=== PATIENT | female | born 1990 | race American Indian/Alaskan Native ===

== ENCOUNTER 2017-04-12 23:00 | Emergency (ER) | payer BC ==
[2017-04-12 23:43] LABS: Basophils % (Auto) 1.4 % (0.0-1.8); Eosinophils % (Auto) 1.1 % (0.0-4.3); Hematocrit 35.2 % (30.3-42.9); Hemoglobin 12.2 gm/dl (10.1-14.3); Mean Corpuscular HGB Conc 35 % (30-34); Mean Corpuscular Hemoglobin 32 pg (28-32); Mean Corpuscular Volume 91 fl (79-97); Platelet Count 184 K/mm3 (140-440); Red Blood Count 3.85 M/mm3 (3.65-5.03); White Blood Count 3.4 K/mm3 (4.5-11.0)
[2017-04-13 00:42] LABS: Bilirubin,Urine NEG (Negative); Blood,Urine SM (Negative); Ketones,Urine NEG (Negative); Leukocyte Esterase,Urine NEG (Negative); Mucus,Urine FEW /HPF; Nitrite,Urine NEG (Negative); Protein,Urine <15 mg/dL mg/dL (Negative); Urobilinogen,Urine < 2.0 mg/dL (<2.0)
--- NOTE | 2017-04-13 01:36 | Ultrasound Report ---
FINAL REPORT EXAM: US OB TRANSVAGINAL HISTORY: 8 WEEKS PREG / VAG BLEEDING/ LOWER ABD CRAMPS TECHNIQUE: Routine transvaginal imaging was obtained of the pelvis along with Doppler imaging of the gestational sac. FINDINGS: There is an intrauterine gestational sac containing an embryo and yolk sac. Estimated ultrasound age of the fetus is 6 weeks 2 days. There is no demonstrable cardiac activity compatible with demise. There is a subchorionic hemorrhage measuring 1.7 cm x 1.1 cm x 1.7 cm. The uterus measures 8.3 cm x 5.5 cm x 6.5 cm. Left midline there is a myometrial mass measuring 2.1 cm x 1.7 cm x 1.9 cm most likely representing a fibroid. The left ovary measures 2.8 cm x 0.8 cm x 1.8 cm. The right ovary measures 3.3 cm x 1.7 cm x 2.5 cm. Within the right ovary is a complex cyst measuring 2 cm in diameter most likely representing corpus luteum cyst. Free fluid is not seen. IMPRESSION: demise, 6 week 2 day IUP. Subchorionic hemorrhage measuring 1.7 cm x 1.1 cm x 1.7 cm. Probable fibroid in the body of the uterus measuring 2.1 cm x 1.7 cm x 1.9 cm.
--- NOTE | 2017-04-13 01:53 | Ultrasound Report ---
FINAL REPORT EXAM: US OB \T\lt; = 14 WEEKS FETUS HISTORY: 8 WEEKS PREG / VAG BLEEDING/ LOWER ABD CRAMPS TECHNIQUE: Transabdominal imaging was obtained of the pelvis along with Doppler imaging of the uterus. FINDINGS: The uterus measures 8.3 cm x 5.5 cm x 6.5 cm. Left midline in the myometrium is a fibroid measuring 2.1 cm x 1.7 cm x 1.9 cm. There is an intrauterine gestational sac containing an embryo and yolk sac corresponding to an ultrasound age of 6 weeks 2 days. There is no detectable cardiac activity compatible with demise. Adjacent to the gestational sac is a subchorionic hemorrhage measuring 1.7 cm x 1.1 cm x 1.7 cm. The maternal left ovary is normal size contour and echotexture measuring 2.8 cm x 0.8 cm x 1.8 cm. The maternal right ovary measures 3.3 cm x 1.7 cm x 2.5 cm. There is a complex cyst in the right ovary measures 2 cm in diameter most likely representing corpus luteum cyst. IMPRESSION: demise, 6 week 2 day IUP. Small fibroid in the body of the uterus measuring 2.1 cm x 1.7 cm x 1.9 cm.
[2017-04-13 02:31] VITALS: BP 101/69
--- NOTE | 2017-04-13 03:06 | Emergency Department Report ---
HPI - General Chief Complaint: Vaginal Bleeding Time Seen by Provider: 04/13/17 02:51 - HPI HPI: Room 8 The patient is a 26-year-old female presenting with a chief complaint of vaginal spotting. The patient states she is and is afternoon she developed light vaginal spotting as well as intermittent pelvic cramping. Patient denies any other complaints Location: Pelvis Duration: Intermittent since this afternoon Quality: Cramping Severity: Mild Modifying factors: [see above] Context: [see above] Mode of transportation: Unknown ED Past Medical Hx - Past Medical History Previous Medical History?: No - Surgical History Past Surgical History?: No - Family History Family history: no significant - Social History Smoking Status: Never Smoker Substance Use Type: None (denies illicit drug use) ED Review of Systems ROS: Stated complaint: VAGINAL BLEEDING Other details as noted in HPI Comment: All other systems reviewed and negative Constitutional: denies: chills, fever Eyes: denies: eye pain, eye discharge, vision change ENT: denies: ear pain, throat pain Respiratory: denies: cough, shortness of breath, wheezing Cardiovascular: denies: chest pain, palpitations Endocrine: no symptoms reported Gastrointestinal: abdominal pain. denies: nausea, diarrhea Genitourinary: abnormal menses. denies: urgency, dysuria, discharge Musculoskeletal: denies: back pain, joint swelling, arthralgia Skin: as per HPI Neurological: denies: headache, weakness, paresthesias Psychiatric: denies: anxiety, depression Hematological/Lymphatic: denies: easy bleeding, easy bruising Physical Exam - Physical Exam Vital Signs: Vital Signs 04/12/17 04/13/17 23:07 02:30 Temperature 98.2 F 98 F Pulse Rate 83 88 Respiratory 20 18 Rate Blood Pressure 106/75 Blood Pressure 101/69 [Left] O2 Sat by Pulse 100 100 Oximetry Physical Exam: GENERAL: The patient is well-developed well-nourished female lying on stretcher not appearing to be in acute distress. [] HEENT: Normocephalic. Atraumatic. Extraocular motions are intact. Patient has moist mucous membranes. NECK: Supple. Trachea midline CHEST/LUNGS: Clear to auscultation. There is no respiratory distress noted. HEART/CARDIOVASCULAR: Regular. There is no tachycardia. There is no gallop rub or murmur. ABDOMEN: Abdomen is soft, nontender. Patient has normal bowel sounds. There is no abdominal distention. SKIN: There is no rash. There is no edema. There is no diaphoresis. NEURO: The patient is awake, alert, and oriented. The patient is cooperative. The patient has normal speech MUSCULOSKELETAL: There is no evidence of acute injury. PELVIS: No blood in the vault ED Course Vital Signs 04/12/17 04/13/17 23:07 02:30 Temperature 98.2 F 98 F Pulse Rate 83 88 Respiratory 20 18 Rate Blood Pressure 106/75 Blood Pressure 101/69 [Left] O2 Sat by Pulse 100 100 Oximetry - Consultations Consultation #1: 04/13/17 03:52 Dr. Watt paged 04/13/17 03:[address] Watt- request that the patient call his office today to schedule an appointment to be seen either today or tomorrow and he will " take care of it from there." ED Medical Decision Making - Lab Data Result diagrams: 04/12/17 23:16 Laboratory Tests 04/12/17 04/12/17 04/12/17 23:16 23:16 23:16 WBC 3.4 L RBC 3.85 Hgb 12.2 Hct 35.2 MCV 91 MCH 32 MCHC 35 H RDW 13.0 L Plt Count 184 Lymph % (Auto) 54.0 H [place] % (Auto) 6.8 Eos % (Auto) 1.1 Baso % (Auto) 1.4 Lymph # 1.9 [place] # 0.2 Eos # 0.0 Baso # 0.0 Seg Neutrophils % 36.7 L Seg Neutrophils # 1.3 L HCG, Quant 31755 H Urine Color Urine Turbidity Urine pH Ur Specific [place] Urine Protein Urine Glucose (UA) Urine Ketones Urine Blood Urine Nitrite Urine Bilirubin Urine Urobilinogen Ur Leukocyte Esterase Urine WBC (Auto) Urine RBC (Auto) U Epithel Cells (Auto) Hyaline Casts Urine Mucus Blood Type O POSITIVE Antibody Screen Negative 04/13/17 00:03 WBC RBC Hgb Hct MCV MCH MCHC RDW Plt Count Lymph % (Auto) [place] % (Auto) Eos % (Auto) Baso % (Auto) Lymph # [place] # Eos # Baso # Seg Neutrophils % Seg Neutrophils # HCG, Quant Urine Color Straw Urine Turbidity Clear Urine pH 7.0 Ur Specific [place] 1.004 Urine Protein <15 mg/dl Urine Glucose (UA) Neg Urine Ketones Neg Urine Blood Sm Urine Nitrite Neg Urine Bilirubin Neg Urine Urobilinogen < 2.0 Ur Leukocyte Esterase Neg Urine WBC (Auto) 1.0 Urine RBC (Auto) 1.0 U Epithel Cells (Auto) 4.0 Hyaline Casts 1 Urine Mucus Few Blood Type Antibody Screen - Radiology Data Radiology results: report reviewed (pelvic ultrasound), image reviewed (pelvic ultrasound) Pelvic ultrasound (read by radiologist) 5 demise, 6 week 2 day IUP. Subchorionic hemorrhage measuring 1.7 x 1.1 x 1.7 cm. Probable fibroid in the body of the uterus measuring 2.1 x 1.7 x 1.9 cm - Differential Diagnosis demise Critical care attestation.: If time is entered above; I have spent that time in minutes in the direct care of this critically ill patient, excluding procedure time. ED Disposition Clinical Impression: demise Disposition: DC-01 TO HOME OR SELFCARE Is pt being admited?: No Does the pt Need Aspirin: No Condition: Stable Instructions: Intrauterine Demise (ED) Additional Instructions: Return to the emergency department immediately should you develop worsening symptoms, fever, inability to tolerate food or liquid or any other concerns. Referrals: PRIMARY CARE, [Primary Care Provider] - 3-[address] Watt, your [facility] [Other] - [facility] (Call your [facility] this morning to schedule an appointment to be seen today or tomorrow) Time of Disposition: 03:59
== END 2017-04-13 04:10 | disposition home or self-care (01) ==
LOC: ED 23:00
DX: O36.4XX1 Maternal care for intrauterine death, fetus 1 (principal); Z3A.01 Less than 8 weeks gestation of pregnancy
CPT/HCPCS: 36415; 76801; 76817; 81001; 84702; 85025; 86850; 86900; 86901